=== PATIENT | female | born 1945 | race Caucasian/White ===

== ENCOUNTER 2017-02-27 22:53 | Emergency (ER) | payer SELFPAY ==
[2017-02-28 01:12] VITALS: BP 175/87
== END 2017-02-28 01:12 | disposition home or self-care (01) ==
LOC: ED 22:53
DX: S01.412A Laceration without foreign body of left cheek and temporomandibular area, initial encounter (principal); I10 Essential (primary) hypertension; E11.9 Type 2 diabetes mellitus without complications; W18.30XA Fall on same level, unspecified, initial encounter; Y99.8 Other external cause status; Y93.89 Activity, other specified; Y92.098 Other place in other non-institutional residence as the place of occurrence of the external cause
CPT/HCPCS: 90715; J2001